=== PATIENT | male | born 1965 | race Caucasian/White ===

== ENCOUNTER 2018-08-31 10:39 | Day surgery (SDC) | payer BC ==
[2018-08-25 11:21] VITALS: BMI 25.7
[~2018-08-31 10:39] MED LIST: LACTATED RINGERS 1,000 ML IV SCH; LIDOCAINE 1% 20 ML VIAL (10MG/ML) FOR IV START INTRADERMA PRN
[2018-08-31] MEDS ORDERED: LIDOCAINE 1% 20 ML VIAL (10MG/ML) FOR IV START INTRADERMA ONE (11:01)
[2018-08-31 11:10] VITALS: TEMP 98.6
[2018-08-31] MEDS ORDERED: PROPOFOL 10 MG/ML 20 ML VIAL IV ONE (12:48)
--- NOTE | 2018-08-31 14:00 | P.PCN ---
Date of Procedure: 08/31/18 Description of Procedure: BRIEF HISTORY: The patient is a 52-year-old male with no prior history of colonoscopy who presents for outpatient screening colonoscopy. The patient had a positive Cologard in the outpatient setting. He denies any family history of colon cancer but does report colonic polyps in his sister and brother. He denies any change in bowel habits, blood per rectum, or melena. PROCEDURE PERFORMED: Colonoscopy with polypectomy. PREOPERATIVE DIAGNOSIS: Screening colonoscopy, positive cologard. ESTIMATED BLOOD LOSS: Minimal. IV sedation per Anesthesia. PROCEDURE: After informed consent was obtained, the patient, was brought into the endoscopy unit. IV sedation was administered by Anesthesia under continuous monitoring. Digital rectal examination was normal. Initially the Olympus CF-190 flexible video colonoscope was then inserted in the rectum, gradually advanced into the cecum without any difficulty. Careful examination was performed as the scope was gradually being withdrawn. Ileocecal valve and the appendiceal orifice were visualized and appeared normal. Prep was excellent. Mucosa of the cecum, ascending colon, transverse colon, descending colon, sigmoid colon, and rectum appeared normal. 2 diminutive sessile cecal polyps measuring 2 and 3 mm were removed with cold forcep polypectomy. One diminutive ascending sessile colon polyp measuring 3 mm was removed with cold forceps. One 5 mm transverse colon sessile polyp removed with cold snare polypectomy. 11 mm pedunculated descending colon polyp removed with hot snare polypectomy. 3 mm sessile sigmoid polyp removed with cold forcep polypectomy. 2 mm sessile rectal polyp removed with cold forcep polypectomy. Mild internal hemorrhoids noted. Retroflexion was performed in the rectum and no lesions were seen. The patient tolerated the procedure well. IMPRESSION: 1. 5 diminutive sessile colonic polyps removed from the cecum, ascending colon, sigmoid colon and rectum with cold forcep polypectomy. 2. Sessile colonic polyp removed from the transverse colon with cold snare polypectomy. 3. Large pedunculated descending colon polyp removed with hot snare polypectomy. 4. Mild internal hemorrhoids. RECOMMENDATIONS: Findings of this examination were discussed with the patient and his . Okay to resume diet. Await pathology from biopsies. Anticipate repeat colonoscopy in 1 year pending findings from polyp pathologies.
[2018-08-31] MEDS ORDERED: ONDANSETRON 4 MG/2 ML VIAL IVP ONE (14:01)
[2018-08-31 14:03] VITALS: RESP 16
[2018-08-31 15:51] VITALS: BP 139/74; PULSE 87
== END 2018-08-31 15:38 | disposition home or self-care (01) ==
LOC: ORWHC2ENDO 10:39
PROVIDERS: ATTEND Internal Medicine
DX: R19.5 Other fecal abnormalities (principal); D12.2 Benign neoplasm of ascending colon; D12.0 Benign neoplasm of cecum; D12.4 Benign neoplasm of descending colon; D12.3 Benign neoplasm of transverse colon; D12.8 Benign neoplasm of rectum; K63.5 Polyp of colon; K64.8 Other hemorrhoids; I10 Essential (primary) hypertension; Z87.891 Personal history of nicotine dependence; Z83.71 Family history of colonic polyps; Z79.811 Long term (current) use of aromatase inhibitors; Z79.899 Other long term (current) drug therapy
CPT/HCPCS: 88305; 45380; 45385; J2405; J2704

== ENCOUNTER → 2020-02-15 | Outpatient (CLI) | payer BC ==
--- NOTE | 2020-02-15 17:03 | US ---
EXAMINATION TYPE: US groin RT DATE OF EXAM: 02/15/2020 COMPARISON: NONE CLINICAL HISTORY: K40.90 INGUINAL HERNIA. Rt groin pain x 2 days Scanned Right groin at area of patients concern. No evidence of hernia seen. IMPRESSION: No evidence of a hernia in the right groin. No solid or cystic mass identified.
--- NOTE | 2020-02-15 17:22 | US ---
EXAMINATION TYPE: US scrotum with doppler. Grayscale and color Doppler Duplex imaging performed of t he scrotum. DATE OF EXAM: 02/15/2020 COMPARISON: NONE CLINICAL HISTORY: N50.819 TESTICULAR PAIN. Rt testicle pain x 2 days EXAM MEASUREMENTS: TESTICLES: Right Testicle: 3.4 x 1.8 x 2.9 cm Left Testicle: 3.7 x 1.8 x 2.6 cm EPIDIDYMIS HEAD: Right Epididymis: 1.1 x 1.0 x 0.7 cm Left Epididymis: 1.0 x 0.8 x 1.0 cm Doppler performed to assess for testicular vascularity; good bilateral color flow and waveforms are s een. There is no evidence of testicular torsion. Presence of hydroceles: Small B/L Presence of varicoceles: Yes, B/L Single echogenic microcalcification lower Rt testicle 0.2 x 0.1 x 0.1 cm IMPRESSION: There are very small bilateral hydroceles. No testicular torsion or mass.
== END | disposition home or self-care (01) ==
LOC: RADUSWWP 15:36
PROVIDERS: ATTEND Family Medicine
DX: N43.3 Hydrocele, unspecified (principal); K40.90 Unilateral inguinal hernia, without obstruction or gangrene, not specified as recurrent
CPT/HCPCS: 76870; 93975

== ENCOUNTER → 2021-06-05 | Outpatient (CLI) | payer BC ==
--- NOTE | 2021-06-05 17:46 | CT ---
EXAMINATION TYPE: CT abdomen pelvis wo con CT DLP: 675 mGycm, Automated exposure control for dose reduction was used. DATE OF EXAM: 06/05/2021 5:31 PM COMPARISON: None. CLINICAL INDICATION:Male, 55 years old with history of R10.9, R85.0; Mid abdominal pain, nausea and d iarrhea. TECHNIQUE: Standard CT of the abdomen and pelvis without IV or oral contrast. Lack of IV or oral co ntrast limits evaluation of solid and hollow organ viscera. Coronal and sagittal reformats were perfo rmed. FINDINGS: LOWER CHEST: There is a 5 mm left lower lobe pulmonary nodule. ABDOMEN LIVER: Unremarkable GALLBLADDER AND BILE DUCTS: Unremarkable. PANCREAS: Unremarkable. SPLEEN: Unremarkable. ADRENAL GLANDS: Unremarkable. KIDNEYS AND URETERS: No evidence of hydronephrosis or renal calculus. The ureters are unremarkable. PELVIS BLADDER: Unremarkable REPRODUCTIVE: Unremarkable. ABDOMEN & PELVIS STOMACH AND BOWEL: There is a fat density subtle surrounding fat stranding in the left abdomen along the descending colon consistent with an epiploic appendage. Scattered diverticula are noted throughou t the colon. No evidence of bowel obstruction. Appendix is normal.. PERITONEUM: No evidence of pneumoperitoneum or free fluid. VASCULATURE: No evidence of aortic aneurysm. MUSCULOSKELETAL: No acute osseous abnormalities, mild scoliosis noted. Mild atherosclerotic disease o f the aorta. LYMPH NODES: No gross evidence for lymphadenopathy. SOFT TISSUE/ABDOMINAL WALL: Bilateral fat filled inguinal hernia. IMPRESSION: 1. Descending colon epiploic appendagitis. 2. Left lower lobe 5 mm pulmonary nodule. If the patient has risk factors consider follow-up in one y ear. 3. Colonic diverticulosis.
== END | disposition home or self-care (01) ==
LOC: RADCTMAIN 17:04
PROVIDERS: ATTEND Family Medicine
DX: K63.89 Other specified diseases of intestine (principal); R91.1 Solitary pulmonary nodule; K57.30 Diverticulosis of large intestine without perforation or abscess without bleeding
CPT/HCPCS: 74176

== ENCOUNTER 2021-07-14 08:04 | Day surgery (SDC) | payer BC ==
[2021-07-10 12:09] VITALS: BMI 24.1
[~2021-07-14 08:04] MED LIST changes: -LACTATED RINGERS 1,000 ML IV SCH; +LIDOCAINE 1% (10MG/ML) FOR IV START INTRADERMA PRN; -LIDOCAINE 1% 20 ML VIAL (10MG/ML) FOR IV START INTRADERMA PRN
[2021-07-14 08:45] VITALS: TEMP 98.1
[2021-07-14] MEDS: LACTATED RINGERS 1,000 ML IV SCH ×2 (08:50→08:55)
[2021-07-14] MEDS ORDERED: PROPOFOL 10 MG/ML 20 ML VIAL IV ONE (08:57)
[2021-07-14] MEDS ORDERED: ONDANSETRON 4 MG/2 ML VIAL ONE (08:57)
[2021-07-14] MEDS ORDERED: LIDOCAINE 1% INJ 10MG/ML (20 ML MDV) ONE (08:57)
--- NOTE | 2021-07-14 09:13 | P.PCN ---
Date of Procedure: 07/14/21 Procedure(s) Performed: BRIEF HISTORY: Patient is a 55-year-old pleasant white male scheduled for an elective colonoscopy as a part of evaluation of prior history of colon polyps. Last colonoscopy was 3 years ago. PROCEDURE PERFORMED: Colonoscopy. PREOPERATIVE DIAGNOSIS: History of colon polyps. IV sedation per Anesthesia. PROCEDURE: After informed consent was obtained, the patient, was brought into the endoscopy unit. IV sedation was administered by Anesthesia under continuous monitoring. Digital rectal examination was normal. Initially the Olympus CF-160 flexible video colonoscope was then inserted in the rectum, gradually advanced into the cecum without any difficulty. Careful examination was performed as the scope was gradually being withdrawn. Ileocecal valve and the appendiceal orifice were visualized and appeared normal. Prep was excellent. Mucosa of the cecum, ascending colon, transverse colon, descending colon, sigmoid colon, and rectum appeared normal. Retroflexion was performed in the rectum and no lesions were seen. The patient tolerated the procedure well. IMPRESSION: Normal-appearing colon from rectum to cecum no evidence of colorectal neoplasia. RECOMMENDATIONS: Findings of this examination were discussed with the patient as well as his family. He was advised to have a repeat surveillance colonoscopy in 5 years from now because of the prior history of colon polyps
[2021-07-14 09:21] VITALS: RESP 16
[2021-07-14 09:34] VITALS: BP 100/62; PULSE 68
== END 2021-07-14 10:01 | disposition home or self-care (01) ==
LOC: ORWHC2ENDO 08:04
PROVIDERS: ATTEND Internal Medicine Gastroenterology
DX: Z86.010 Personal history of colon polyps (principal); I10 Essential (primary) hypertension
CPT/HCPCS: 45378; J2405; J2001; J2704

== ENCOUNTER → 2024-02-07 | Outpatient (CLI) | payer BC ==
--- NOTE | 2024-02-07 09:45 | MR ---
EXAMINATION TYPE: MR lumbar spine wo con DATE OF EXAM: 02/07/2024 COMPARISON: CT abdomen and pelvis 06/05/2021 HISTORY: Pain in back and down right leg with loss of sensation of right gracia and foot x4 months TECHNIQUE: Multiplanar, multisequence images of the lumbar spine were acquired without IV contrast. FINDINGS: The lumbar vertebral bodies do have preserved heights and no spondylolisthesis. Dextrocurv ature of the thoracolumbar spine. Multilevel disc desiccation is present of the lower lumbar spine. I ncidental fatty filum terminale. The conus medullaris and the distal spinal cord do appear unremarkab le with regards to their signal intensity and morphology. Conus medullaris terminates at the T12-L1 d isc space. L1-L2: No significant disc pathology is identified. The spinal canal and neural foramen are patent. L2-L3: No significant disc pathology is identified. The spinal canal and neural foramen are patent. L3-L4: Right paracentral small disc protrusion without significant effacement of the anterior thecal sac. No significant central canal stenosis. No neural foraminal stenosis. L4-L5: Broad-based disc bulge is identified with associated enlargement of the facet joints. The spi nal canal remains patent. Neural canals are minimally narrowed bilaterally. L5-S1: Central disc protrusion with right paracentral disc sequestration along the right subarticular zone at the disc level (series 601, image 3). This abuts the exiting right nerve root with mass effe ct. The central disc protrusion causes mild effacement of the anterior thecal sac. Bilateral facet ar thropathy with mild left and [id number] right neuroforaminal stenosis. Other significant findings: None. IMPRESSION: Multilevel disc degeneration of the lower lumbar spine with associated osteoarthritic changes. L5-S1 disc protrusion with superimposed right paracentral disc sequestration. Abuts the exiting right S1 ne rve root with mild effacement of the anterior thecal sac. Bilateral facet arthropathy at this level w ith mild left and [id number] right neuroforaminal stenosis. [facility], , 02/07/2024 9:43 AM
--- NOTE | 2024-02-08 21:35 | MR ---
EXAMINATION TYPE: MR sacrum/coccyx wo con DATE OF EXAM: 02/07/2024 7:50 AM CLINICAL INDICATION: Male, 58 years old with history of M54.16 RADICULOPATHY, LUMBAR REGION; PHH, Joyce n in back and down right leg with loss of sensation of right gracia and foot x4 months COMPARISON: None TECHNIQUE: Triplane multisequence imaging was performed of the pelvis. IV Contrast: cc none FINDINGS: Reproductive: Prostate: Unremarkable. Seminal vesicle's: Unremarkable. Testes: Unremarkable. Bladder: Unremarkable. Bowel: Unremarkable as visualized. Peritoneum: None Lymph nodes: No evidence of adenopathy. Vasculature: Unremarkable. Musculoskeletal: Bone marrow signal is within normal signal intensity. No bony masses. The neural for amen of the sacrum and coccyx appear within normal limits. No evidence for an neural foraminal stenos is. Abdominal wall/soft tissues: Unremarkable. IMPRESSION: No evidence for acute process involving the sacrum or coccyx. No evidence for significant neural fora cathleen stenosis involving the sacrum. Please see dedicated MRI lumbar spine for findings in the lumbar spine. [facility], Workstation: [id number], 02/08/2024 9:32 PM
== END | disposition home or self-care (01) ==
LOC: RADMRIMAIN 05:56
PROVIDERS: ATTEND Family Medicine
DX: M54.16 Radiculopathy, lumbar region
CPT/HCPCS: 72148; 72195

== ENCOUNTER → 2024-02-09 | Outpatient (CLI) | payer BC ==
[2024-02-09 09:37] VITALS: BP 138/84; PULSE 80; RESP 16
--- NOTE | 2024-02-09 14:59 | P.PAINPG ---
PQRS Measure Charge Sheet Comment: HISTORY OF PRESENT ILLNESS: A 58 yr old male w at side as a referral from [facility] presents today w severe and chronic LBP > 3 mo secondary to radiculopathy, spondylosis and facet arthropathy without myelopathy for evaluation. Pt states pain level is provoked as high as 10 /10 in intensity, constant, localized in the R lumbar, predominantly axial, throbbing in character w occasional shooting pain towards the buttocks and LEs. Pain is provoked by walking for periods > 30 min. Pain is alleviated by PT x 2 wks which he is currently in, heat, ice, medications (Neurontin, Ibu), topical BioFreeze, repositioning and rest . PMH: OA, HTN, Hyperlipidemia, Asthma, MDD PSH: Colonoscopy (2018, 2021), Vasectomy, Knee Surgery (2009) SH: Daily tobacco use, No ETOH use, No illicit drug use FH: Fa- CAD, age 58. Bro- CAD. Mo- Alzheimer's, age 89. All: See list Meds: See list REVIEW OF ORGAN SYSTEMS: CONSTITUTIONAL: No fevers or chills. No recent weight loss. NEUROLOGICAL: + numbness and tingling along the distal extremities. No seizure disorders or headaches. MUSCULOSKELETAL: + pain PSYCHIATRIC: Denies current depression or suicidal thoughts. Physical Examinations : Constitutional : Cooperative , not in acute distress . Neurologic : Cranial nerve II to XII intact. No focal neurological deficits. Psychiatric : alert & oriented x 3. Matching mood & appropriate affect. Judgment & insight intact. Musculoskeletal : Cervical Spine Motor strength in the deltoid and biceps: Normal right side. Normal Left side Motor strength biceps and the wrist extensors: Normal right side . Normal left side Motor strength in the triceps muscle: Normal right side. Normal left side Deep tendon reflexes: Normal at the biceps. Normal at Brachioradialis. Normal at triceps Vertebral body tenderness to deep palpation over Cervical facet loading test: positive bilaterally Spurling test: positive bilaterally Neck distraction test: positive bilaterally Orion sign: positive bilaterally Lumbar spine Motor strength lower extremities ,thigh and legs 5/5 Right side , 5/5 Left side Deep tendon reflexes : Normal Knee Jerk. Normal Ankle Jerk Vertebral body tenderness over Yao Test positive L5-S1 Lumbar facet Loading Test: positive Right / positive Left Range of motion of the lumbar spine Flexion 30 degrees, extension 10 degrees Straight Leg Raise test: Left/ Right positive at degrees Maged test: positive right / positive left. Severe tenderness over the Sacroiliac joint on the Right / Left sides Gaenslen test: positive bilaterally Seated flexion test: positive bilaterally. Sacral spine : Severe tenderness over the Sacroiliac joint: right side / left side Range of motion: Flexion of the lumbar spine <60 degrees Range of motion: Extension of the lumbar spine <20 degrees Gaenslen's Test positive Mgaed test: positive right side / left side Thigh Thrust Test Sacral Thrust Test Imaging: X ray lumbar spine from 11/21/23 reviewed MRI non contrast lumbar spine from 02/07/24 reviewed MRI non contrast of sacral spine from 02/08/24 reviewed Assessment/ Plan : Lumbar radiculopathy Recommendation of BRAYDEN L5-S1 #1. Risks, benefits of procedure discussed and pt verbalized understanding. Protocol for discontinuation/ continuation of medications heather procedure discussed. All questions answered. I have spent greater than 30 minutes on patient care today. Dr Guevara was available by phone for the evaluation of this patient. The time was used to review the medical records including relevant urine studies and Prescription history (MAPs), review of the available imaging, evaluation and examination of the patient, coordination of care with the medical staff and if applicable referring physicians, as well as creation of the medical record PQRS Narrative: Smoking Status Former smoker Home Medications: Ambulatory Orders Losartan-Hctz 50-12.5 mg [Hyzaar 50-12.5] 1 each PO DAILY 08/25/18 buPROPion HCL [buPROPion HCL SR] 150 mg PO Q12HR 02/09/24 Controlled Substance Measures - Controlled Substance Measures Is patient prescribed a controlled substance at discharge?: No
== END ==
LOC: PNWHC3 08:36
PROVIDERS: ATTEND Specialist
DX: M54.17 Radiculopathy, lumbosacral region (principal); Z87.891 Personal history of nicotine dependence; Z88.1 Allergy status to other antibiotic agents
CPT/HCPCS: 99211

== ENCOUNTER → 2024-03-30 | Outpatient (CLI) | payer BC ==
[2024-03-30 15:25] LABS: Basophils # (A) 0.04 X 10*3/uL (0.00-0.10); Basophils % (A) 0.6 %; Eosinophils # (A) 0.08 X 10*3/uL (0.04-0.35); Eosinophils % (A) 1.1 %; HCT 45.5 % (39.6-50.0); HGB 15.6 g/dL (13.0-17.0); Lymphocytes # (A) 1.53 X 10*3/uL (0.90-5.00); Lymphocytes % (A) 21.4 %; MCH 31.2 pg (27.0-32.0); MCHC 34.3 g/dL (32.0-37.0); Mean Platelet Volume 10.6 FL (9.5-12.2); Monocytes # (A) 0.61 X 10*3/uL (0.20-1.00); Monocytes % (A) 8.5 %; NRBC Per 100 WBC 0 X 10*3/uL (0.00-0.01); Neutrophils # (A) 4.86 X 10*3/uL (1.80-7.70); Neutrophils % (A) 67.8 %; Platelet Count 219 X 10*3/uL (140-440); RDW 13.1 % (11.5-14.5); WBC 7.16 X 10*3/uL (4.50-10.00)
== END | disposition home or self-care (01) ==
LOC: LABPAT 09:20
PROVIDERS: ATTEND Surgery
DX: Z01.818 Encounter for other preprocedural examination (principal); K40.90 Unilateral inguinal hernia, without obstruction or gangrene, not specified as recurrent
CPT/HCPCS: 85025; 86850; 86900; 86901

== ENCOUNTER 2024-04-09 10:39 | Day surgery (SDC) | payer BC ==
[2024-04-09] MEDS: IV FLUID CONTINUATION 1,000 ML IV ONE ×2 (10:59→14:38)
[2024-04-09 11:07] VITALS: TEMP 97.6
[2024-04-09] MEDS: ACETAMINOPHEN TAB 500 MG TAB PO PRN (11:17)
[2024-04-09] MEDS: LACTATED RINGERS 1,000 ML BAG IV STA (11:18)
[2024-04-09] MEDS: ONDANSETRON 4 MG/2 ML VIAL IVP STA (11:19)
[2024-04-09] MEDS: DEXAMETHASONE SOD PHOSPHATE 4 MG/ML 1 ML VIAL IVP STA (11:19)
[2024-04-09] MEDS: TAMSULOSIN 0.4 MG CAP.ER.24H PO STA (11:22)
[2024-04-09] MEDS: HEPARIN SODIUM,PORCINE 5,000 UNIT/ML 1 ML VIAL SQ PRN (11:26)
--- NOTE | 2024-04-09 11:32 | P.GSHP ---
History of Present Illness H&P Date: 04/09/24 Chief Complaint: Bilateral inguinal hernia 58-year-old male seen in the office a little over a month ago. Patient with bilateral inguinal hernias. Both becoming more symptomatic. Right side more than left. No history of previous repair. Past Medical History Past Medical History: COPD, Hyperlipidemia, Hypertension, Osteoarthritis (OA) Additional Past Medical History / Comment(s): back pain, hx of heart arrythmia none since bp meds. no statin at this time. issues urinating at times. sequestered disc between L5 and S1. couple bulging discs. hx of polyps History of Any Multi-Drug Resistant Organisms: None Reported Past Surgical History: Orthopedic Surgery Additional Past Surgical History / Comment(s): lt knee arthroscopy, dental work , COLONOSCOPY Past Anesthesia/Blood Transfusion Reactions: Family History of Problems w/ Anesthesia, Postoperative Nausea & Vomiting (PONV) Additional Past Anesthesia/Blood Transfusion Reaction / Comment(s): sister during hip replacement surgery had heart attack Smoking Status: Current some day smoker, Light tobacco smoker - Past Family History Mother Family Medical History: No Reported History, Dementia, Hypertension Father Family Medical History: Coronary Artery Disease (CAD), Seizure Disorder Additional Family Medical History / Comment(s): hx of scarlet fever, at 56 Medications and Allergies Home Medications Medication Instructions Recorded Confirmed Type Losartan-Hctz 50-12.5 mg [Hyzaar 1 each PO DAILY 08/25/18 04/03/24 History 50-12.5] buPROPion HCL [buPROPion HCL SR] 150 mg PO DAILY 02/09/24 04/03/24 History Gabapentin [Neurontin] 400 mg PO TID 04/03/24 04/03/24 History Ibuprofen [Motrin Ib] 400 mg PO DIRECTED PRN 04/03/24 04/03/24 History Allergies Allergy/AdvReac Type Severity Reaction Status Date / Time antibiotic AdvReac sunburn Uncoded 04/03/24 11:13 Surgical - Exam Vital Signs Temp Pulse Resp BP Pulse Ox 97.6 F 81 18 133/74 99 04/09/24 10:58 04/09/24 10:58 04/09/24 10:58 04/09/24 10:58 04/09/24 10:58 Physical exam: General: Well-developed, well-nourished HEENT: Normocephalic, sclerae nonicteric Abdomen: Nontender, nondistended, bilateral reducible inguinal hernias Extremities: No edema Neuro: Alert and oriented Assessment and Plan (1) Bilateral inguinal hernia Narrative/Plan: Will proceed with laparoscopic da Og assisted repair bilateral inguinal hernia with mesh, possible open. Risks of bleeding, infection, recurrence, bladder and bowel injury, numbness, nerve injury, conversion to an open procedure were discussed with the patient. The patient understands and wishes to proceed. Status: Acute Code(s): K40.20 - BI INGUINAL HERNIA, W/O OBST OR GANGRENE, NOT SPCF RECUR SNOMED Code(s): 90187839
[2024-04-09] MEDS ORDERED: PROPOFOL 10 MG/ML 20 ML VIAL IV ONE (12:02)
[2024-04-09] MEDS ORDERED: ROCURONIUM 10 MG/ML (5 ML VIAL) IV ONE (12:02)
[2024-04-09] MEDS ORDERED: GLYCOPYRROLATE 0.2 MG/ML 2 ML VIAL ONE (12:02)
[2024-04-09] MEDS ORDERED: NEOSTIGMINE 1 MG/ML 10 ML VIAL ONE (12:02)
[2024-04-09] MEDS ORDERED: SUCCINYLCHOLINE CHLORIDE 200 MG/10 ML VIAL IV ONE (12:02)
[2024-04-09] MEDS ORDERED: MIDAZOLAM 2 MG/2 ML VIAL ONE (12:02)
[2024-04-09] MEDS ORDERED: LIDOCAINE 1% INJ 10MG/ML (20 ML MDV) ONE (12:02)
[2024-04-09] MEDS ORDERED: SUGAMMADEX SODIUM 100 MG/ML SYR IV ONE (12:02)
[2024-04-09] MEDS ORDERED: HYDROmorphone (PF) 1 MG/ML ONE (12:02)
[2024-04-09] MEDS ORDERED: fentaNYL (PF) 50 MCG/ML 2 ML AMP ONE (12:02)
[2024-04-09] MEDS: BUPIVACAINE (PF) 0.25% 30 ML VIAL SQ ONE (12:23)
--- NOTE | 2024-04-09 13:58 | P.OP ---
Date of Procedure: 04/09/24 Procedure(s) Performed: PREOPERATIVE DIAGNOSIS: Bilateral inguinal hernia POSTOPERATIVE DIAGNOSIS: Same PROCEDURE: Laparoscopic da Og assisted repair bilateral inguinal hernia with mesh SURGEON: Dr. Nguyen ANESTHESIA: General EBL: 10 cc OPERATIVE PROCEDURE DETAILS: Patient was placed in the operating table in the supine position. The patient was placed under general anesthesia. The abdomen was prepped and draped in usual sterile fashion. A small curvilinear supraumbilical incision was made. The fascia was retracted anteriorly with Nikos forceps. The Veress needle was inserted. The saline drop test was normal. Insufflation took place to 15 mmHg. An 8 mm trocar was placed into the peritoneal cavity. 2 additional 8 mm trochars were placed in the right upper quadrant and left upper quadrant under visualization. The robotic arms were then brought in and docked into place. The fenestrated bipolar was used in the left arm and the laparoscopic patricia was utilized in the right arm. A 30 8 mm scope was used in the up position. The peritoneal cavity was inspected. The patient had a moderate sized right direct inguinal hernia and a smaller sized left indirect inguinal hernia. A incision was created on the peritoneum across the lower abdomen superior to the bladder. The preperitoneal dissection took place bilaterally at that time. The direct hernia on the right-hand side was reduced using blunt dissection. Leonel's ligament and the pubic symphysis were well-visualized. Dissection on the left-hand side of the indirect hernia sac then took place without difficulty as well. Once we had full dissection in both sacs fully reduced 2 separate 15 x 10 mm Progrip mesh were placed within the abdomen crossing one another in the midline. These were then sutured to the Leonel's ligament across the pubic symphysis to the opposite side using a running 3-0 absorbable V lock suture. The same stitch was then brought to the midline and the mesh was sutured to the abdominal wall in the midline superiorly. This covered all hernia spaces nicely. The peritoneal defect was then closed bilaterally using a absorbable 2-0 VLok suture. The hernia sacs were incorporated into the peritoneal closure to help prevent future recurrence. The pneumoperitoneum was then evacuated. The skin of all 3 sites was closed using a 4-0 Monocryl stitch. Skin glue was then applied. TYPE OF MESH USED: ProGrip 15 x 10 cm x 2 LOCATION OF MESH: Preperitoneal FIXATION: Absorbable 3 oh V-Loc PREOPERATIVE DISCUSSION ON SMOKING CESSASTION: Yes PREOPERATIVE DISCUSSION ON MORBID OBESITY: Yes PREOPERATIVE DISCUSSION ON APPROPRIATE USE OF NARCOTIC USE: Yes PREOPERATIVE EDUCATION: Multi Modal, Smoking Cessation and Weight Loss with BMI over 35. DISPOSITION: Stable to recovery room
[2024-04-09 14:55] VITALS: RESP 16
[2024-04-09 16:34] VITALS: BP 128/72; PULSE 84
[2024-04-09] MEDS ORDERED: ACETAMINOPHEN TAB 325 MG TAB PO SCH (17:00)
[2024-04-09] MEDS ORDERED: IBUPROFEN 600 MG TAB PO SCH (20:00)
== END 2024-04-09 16:35 | disposition home or self-care (01) ==
LOC: OR 10:39
PROVIDERS: ATTEND Surgery
DX: K40.20 Bilateral inguinal hernia, without obstruction or gangrene, not specified as recurrent (principal); E78.5 Hyperlipidemia, unspecified; I10 Essential (primary) hypertension; J44.9 Chronic obstructive pulmonary disease, unspecified; M19.90 Unspecified osteoarthritis, unspecified site; F32.A Depression, unspecified; F17.200 Nicotine dependence, unspecified, uncomplicated; F12.90 Cannabis use, unspecified, uncomplicated; Z88.1 Allergy status to other antibiotic agents; Z79.899 Other long term (current) drug therapy
CPT/HCPCS: 49650; S2900